=== PATIENT | male | born 1955 | race Two or more races ===

== ENCOUNTER 2023-04-20 00:41 | Emergency (ER) | payer MEDICARE, OTHER ==
[~2023-04-20] VITALS: Ht 167.6 cm; Wt 72.6 kg
[2023-04-20 02:35] LABS: APPEARANCE,URINE CLOUDY (CLEAR); BILIRUBIN,URINE 2+ (NEGATIVE); BLOOD, URINE 3+ Ery/uL (NEGATIVE); COLOR,URINE RED (YELLOW); KETONES,URINE 1+ mg/dL (NEGATIVE); LEUKOCYTE ESTERASE ,URINE 3+ (NEGATIVE); NITRITE, URINE POSITIVE (NEGATIVE); PH,URINE 6.5 (5.0-8.0); PROTEIN,URINE 3+ mg/dl (NEGATIVE); UGLUCOSE TRACE mg/dL (NEGATIVE)
[2023-04-20 02:41] LABS: ADD URINE CULTURE YES; BACTERIA,URINE Few /HPF (None Seen); RBC,URINE TOO NUMEROUS TO COUN /HPF (0-2)
[2023-04-20 02:42] LABS: SQUAMOUS EPITHELIAL CELL,UR 0-2 /HPF (None Seen)
[2023-04-20] MEDS ORDERED: CIPR-262 PO (02:52)
[2023-04-20] MEDS ORDERED: CIPROFLOXACIN HCL 500 MG TABLET PO ONE (03:00)
[2023-04-20] MEDS ORDERED: CIPROFLOXACIN HCL 500 MG TABLET ONE (03:04)
[2023-04-20 03:40] VITALS: BP 130/88; TEMP 98.1; O2SAT 98
== END 2023-04-20 03:41 ==
LOC: ER 00:43
DX: N39.0 Urinary tract infection, site not specified (principal); R31.9 Hematuria, unspecified; I25.2 Old myocardial infarction; N18.9 Chronic kidney disease, unspecified; Z79.899 Other long term (current) drug therapy; Z88.1 Allergy status to other antibiotic agents
CPT/HCPCS: 81001; 87086-TC